=== PATIENT | female | born 1990 ===

== ENCOUNTER 2022-08-30 16:43 | Inpatient (IN) | payer OTHER, SELFPAY ==
[2022-08-30 16:50] VITALS: BP 100/43; BP 132/78; PULSE 109; PULSE 92; RESP 24; TEMP 36.1; O2SAT 98; O2SAT 99; BMI 30.9
[2022-08-30 17:14] VITALS: BP 115/70
[2022-08-30] MEDS: LORazepam 2 MG/ML VIAL IM (17:15)
[2022-08-30] MEDS: diphenhydrAMINE HCL 50 MG/ML VIAL IM (17:15)
--- NOTE | 2022-08-30 17:22 | PC.NURSE ---
Upon arrival to ED pt hyperventilating and severely emotionally dysregulated. Pt visibly experiencing carpal-pedal spasms, and endorsing feelings of lightheadedness. Pt coached by this RN to breathe into a bag, Dr. Tomlinson over to eval patient, ativan offered by . Pt unsure if she is able to tolerate PO meds at this time due to feeling nauseated and advocating for IM injection. Pt in behavioral control, extremely anxious. Eventually able to private branch exchange operator with t/w into hospital attire. Belongings locked in locker, pt received meds per SEP and currently resting in bed. Pt reported while changing over that she has had very poor sleep for the past week, has not been eating very much either, states she has been having suicidal thoughts for some time now and reports these thoughts as intrusive . Pt states she made a SI attempt when she was 15 years old by swallowing a bottle of pills .
--- NOTE | 2022-08-30 17:27 | ED_ITS ---
HPI - Psych General Chief Complaint: Psychiatric Symptoms Stated Complaint: sec 12 by shanae chen w/plan per ems Time Seen by Provider: 08/30/22 16:50 Source: patient and EMS Mode of arrival: EMS History of Present Illness HPI Narrative: This is a 32-year-old female history of suicidal ideation, depression anxiety presenting to the emergency department via EMS on a Section 12 for suicidal ideation with plan to overdose on her home medications. According to patient she has been feeling suicidal and anxious as well as depressed over the past few days worsening, reports increasing life stressors. Tells me she has had a suicide attempt in the past. Denies visual, auditory and tactile hallucinations. Denies drugs, alcohol and tobacco. No medical complaints at this time. Related Data Home Medications Medication Instructions Recorded Confirmed No Known Home Meds 08/30/22 08/30/22 Allergies Allergy/AdvReac Type Severity Reaction Status Date / Time No Known Allergies Allergy Verified 08/30/22 20:09 Review of Systems Review of Systems: Constitutional : No Weight loss, No Fever, No Chills, No Fatigue, No Malaise ENT/Mouth : No sore throat, No Rhinorrhea Eyes: No Eye Pain, No Swelling, No Redness Cardiovascular : No Chest Pain, No SOB, No Dyspnea on Exertion, No Orthopnea, No Edema, No Palpitations Respiratory : No Cough, No Sputum, No Wheezing Gastrointestinal : No Nausea, No Vomiting, No Diarrhea, No Constipation, No abdominal Pain, No Hematochezia, No Melena Genitourinary : No Dysuria, No Urinary Frequency, No Hematuria, Musculoskeletal : No joint pain, No Myalgias, No Joint Swelling Skin : No Skin Lesions, No rash Neuro : No Weakness, No Numbness, No Dizziness, No Headache Psych : + Anxiety/Panic, + Depression, + SI , No HI All other systems reviewed and are negative Yes all other systems are reviewed and are negative [facility] Past Medical History Attestation statement: The following information was validated with the patient. Source: old records reviewed and nursing notes reviewed Social History Social History Advance Directives: No Advance Directives Information Provided: No Physical Exam Vital Signs: Vital Signs: Last Vital Signs Temp 97.0 F 08/30/22 16:50 Pulse 92 08/30/22 16:50 Resp 24 H 08/30/22 16:50 BP 115/70 08/30/22 17:14 Pulse Ox 99 08/30/22 16:50 O2 Del Method 08/30/22 16:50 BMI result Body Mass Index 30.9 vss Appearance: Alert.? Oriented X3.? No acute distress.? Head: Normocephalic, atraumatic, no step-offs or deformities Eyes: Pupils equal, round and reactive to light.? ENT: Pharynx normal.? Neck: Normal inspection.? Neck supple.? CVS: Normal heart rate and rhythm.? Pulses normal.? Respiratory: No respiratory distress.? Breath sounds normal.? Abdomen: Soft and nontender.? Skin: Skin warm and dry.? Normal skin color.? Normal skin turgor.? Extremities: No lower extremity edema.? No calf ttp. 5/5 strength to bilateral upper and lower extremities Neuro: Oriented X 3.? No motor deficit.? No sensory deficit. CN 2-12 intact Course Reevaluation(s) Reevaluation #1: Patient evaluated in the community by Stefani is an inpatient bedsearch. Time: 17:33 Reevaluation #2: CBC with slight normocytic anemia. Chemistry with no acute electrolyte abnormalities requiring intervention. Salicylates, acetaminophen and ethanol negative. Patient's COVID is negative. At this time patient on a Section 12 and is in inpatient bed search. Will be placed into observation to allow more time to be placed into a psychiatric facility. At time observation was started patient common cooperative no acute distress will continue to monitor discharge Time: 00:51 Medications Administered Discontinued Medications Generic Name Dose Route Start Last Admin Trade Name Mei PRN Reason Stop Dose Admin Acetaminophen 975 mg 08/31/22 00:02 08/31/22 00:06 Acetaminophen 325 Mg Tablet PO 08/31/22 00:03 975 mg ONCE ONE Administration Diphenhydramine HCl 50 mg 08/30/22 16:57 08/30/22 17:15 Diphenhydramine Hcl 50 Mg/Ml Vial IM 08/30/22 16:58 50 mg ONCE ONE Administration Lorazepam 2 mg 08/30/22 16:57 08/30/22 17:15 Lorazepam 2 Mg/Ml Vial IM 08/30/22 16:58 2 mg STAT STA Administration Olanzapine 5 mg 08/31/22 00:18 08/31/22 00:20 Olanzapine 5 Mg Tablet PO 08/31/22 00:19 5 mg ONCE ONE Administration Medical Decision Making Medical Decision Making [facility] Narrative: [id number] To know when patient came in she had an anxiety attack, was refusing p.o. medications and requested IM lorazepam, Benadryl ordered and seem to help. I did not put in an order for behavioral restraint as this was voluntary. [id number] 32-year-old female presents with anxiety, depression and suicidal ideation with plan to overdose times a few days worsening. Physical examination benign. Likely depressive episode with suicidal ideation. I do not suspect metabolic derangements. Plan at this time medical clearance evaluation back. Safety plan in place. Differential Diagnosis Differential Diagnoses: The differential diagnosis associated with the presentation includes Likely depressive episode with suicidal ideation. I do not suspect metabolic derangements. Admission/Observation Consideration of admission/observation: Escalation of care including admission/ observation considered Lab Data [facility] Lab Attestation statement: I reviewed the patient's lab results. 08/30/22 23:57 08/30/22 23:57 Labs: Lab Results 08/30/22 08/30/22 08/30/22 Range/Units 19:26 23:57 23:57 WBC 5.6 (4.8-10.8) X10*3/uL RBC 4.16 L (4.20-5.50) X10*6/uL Hgb 11.9 L (12.0-16.0) g/dl Hct 34.3 L (37.0-47.0) % MCV 82.5 (80.0-98.0) fL MCH 28.6 (27.0-33.0) pg MCHC 34.7 (31.0-35.0) g/dl RDW 12.9 (11.0-16.0) % Plt Count 285 (160-400) X10*3/uL MPV 9.9 (9.4-12.3) fL Immature Gran % (Auto) 0.2 (0.0-0.4) % Neut % (Auto) 60.7 (45-73) % Lymph % (Auto) 31.6 (20-40) % [place] % (Auto) 6.9 (2-11) % Eos % (Auto) 0.2 (0-4) % Baso % (Auto) 0.4 (0-2) % Lymph # (Auto) 1.8 (1.2-4.9) X10*3/uL [place] # (Auto) 0.4 (0.1-1.2) X10*3/uL Eos # (Auto) 0.0 (0.0-0.4) X10*3/uL Baso # (Auto) 0.0 (0.0-0.2) X10*3/uL Abs Immat Gran (auto) 0.01 (0.00-0.03) X10*3/uL Absolute Neuts (auto) 3.4 (2.0-8.3) x10*3/uL Absolute Nucleated RBC 0.000 (0.0-0.012) X10*3/uL Nucleated RBC % (auto) 0.0 (0.0-0.2) /100WBC Sodium 139 (135-145) mmol/L Potassium 3.4 (3.3-5.1) mmol/L Chloride 108 (96-108) mmol/L Carbon Dioxide 20 L (22-29) mmol/L Anion Gap 14 (12-20) BUN 5 L (9-16) mg/dL Creatinine 0.56 (0.5-1.4) mg/dL Estim Creat Clear Calc 142.5 Estimated GFR > 60 Random Glucose 80 (60-115) mg/dL Calcium 8.8 (8.4-10.2) mg/dL Magnesium 1.9 (1.6-2.6) mg/dL Total Bilirubin 0.8 (0.0-1.0) mg/dL AST 15 (5-31) U/L ALT 13 (0-31) U/L Alkaline Phosphatase 61 (39-117) U/L Total Protein 6.9 (6.5-8.0) g/dL Albumin 3.9 (3.5-5.0) g/dL Salicylates < 5.0 L (15-30) mg/dL Acetaminophen < 17 (<30) mcg/mL Ethyl Alcohol < 10 mg/dL COVID-19 (BRIAN) Negative (Negative) COVID-19 Clin Com See Note Core Measures AMI core measures followed: Yes Measure exclusions: not indicated Critical Care Time Critical Care Time Critical Care Time: No Discharge Plan Discharge Clinical Impression: Suicidal ideation, Depression Patient Disposition: Still a Patient Prescriptions: No Action No Known Home Meds Interventions: [place]-Suicide Risk Severity Scale Last Done: 08/31/22 00:25
--- NOTE | 2022-08-30 18:23 | MHC.EDTECH ---
pt medicated with IM ativan and benadryl at 1715 d/t panic attack. pt is sleeping. momo fuentes advised not to do labs until pt wakes up.
--- NOTE | 2022-08-30 19:07 | MHC.CARE ---
CARE team reaches out to [facility] Crisis and speaks to airplane pilot supervisor Cori who confirms that disposition is for IP bed search. [facility] agrees to forward assessment to CARE Team once completed.
[2022-08-30 19:57] LABS: COVID-19 Test Negative (Negative); IDNOW Serial# 16C4AD1C
[2022-08-31 00:02] LABS: MANUAL DIFF FLAG NO
[2022-08-31] MEDS: Acetaminophen 325 MG TABLET 975 MG PO (00:06)
[2022-08-31 00:07] LABS: Basophils Percent Auto 0.4 % (0-2); Eosinophils Percent Auto 0.2 % (0-4); Hematocrit 34.3 % (37.0-47.0); Hemoglobin 11.9 g/dl (12.0-16.0); Imm Gran Abs Auto 0.01 X10*3/uL (0.00-0.03); Imm Gran Pct Auto 0.2 % (0.0-0.4); Lymphocytes Absolute Auto 1.8 X10*3/uL (1.2-4.9); Lymphocytes Percent Auto 31.6 % (20-40); Mean Corpuscular HGB Conc 34.7 g/dl (31.0-35.0); Mean Corpuscular Hemoglobin 28.6 pg (27.0-33.0); Mean Corpuscular Volume 82.5 fL (80.0-98.0); Mean Platelet Volume 9.9 fL (9.4-12.3); Monocytes Absolute Auto 0.4 X10*3/uL (0.1-1.2); Monocytes Percent Auto 6.9 % (2-11); Neutrophils Absolute Auto 3.4 x10*3/uL (2.0-8.3); Neutrophils Percent Auto 60.7 % (45-73); Platelet Count 285 X10*3/uL (160-400); Red Blood Count 4.16 X10*6/uL (4.20-5.50); Red Cell Distribution Width 12.9 % (11.0-16.0); White Blood Count 5.6 X10*3/uL (4.8-10.8)
[2022-08-31] MEDS: OLANZapine 5 MG TABLET PO (00:20)
[2022-08-31 00:23] LABS: Acetaminophen LAB < 17 mcg/mL (<30); Alanine Aminotransferase 13 U/L (0-31); Albumin Level 3.9 g/dL (3.5-5.0); Alkaline Phosphatase 61 U/L (39-117); Anion Gap 14 (12-20); Aspartate Amino Transferase 15 U/L (5-31); Bilirubin Total 0.8 mg/dL (0.0-1.0); Blood Urea Nitrogen 5 mg/dL (9-16); Calcium 8.8 mg/dL (8.4-10.2); Carbon Dioxide 20 mmol/L (22-29); Chloride 108 mmol/L (96-108); Creatinine Clr Calc Pharmacy 142.5; Estimated Glomerular Filt Rate > 60; Ethanol < 10 mg/dL; Glucose Random 80 mg/dL (60-115); Magnesium 1.9 mg/dL (1.6-2.6); Potassium 3.4 mmol/L (3.3-5.1); Salicylate < 5.0 mg/dL (15-30); Sodium 139 mmol/L (135-145); Total Protein 6.9 g/dL (6.5-8.0)
--- NOTE | 2022-08-31 00:26 | PC.NURSE ---
Patient reported KEY 7/10 and racing thought, Tylenol 975 mg and Olanzapine 5 mg PO administered as ordered/pending effect, VSS, disposition per N from the community is Section 12 inpatient Bed Search, behavior non concerning, will continue to monitor.
[2022-08-31 05:52] VITALS: BP 104/55; PULSE 98; RESP 15; TEMP 37.2; O2SAT 97
[2022-08-31 06:03] LABS: Appearance Urine Clear; Color Urine DK YELLOW; Glucose Urine UA Negative (Negative); Leukocyte Esterase Urine Negative (Negative); Nitrite Urine Negative (Negative); Specific Gravity - Urine >= 1.030 (1.005-1.025); UMIC TRIGGER UACC YES; Urine Blood Trace (Negative); Urine Ketones >=80 mg/dL (Negative); Urine Protein Negative (Neg-Trace)
[2022-08-31 06:10] LABS: Bacteria Urine None Seen (None Seen); Hyaline Casts Urine 0-2 /LPF (0-2); RBC Urine 0-2 /HPF (0-2); UACC Culture Trigger YES
--- NOTE | 2022-08-31 06:10 | PC.NURSE ---
Patient slept through the night, no distress observed/reported, behavior non concerning, disposition per [facility] from community is section 12 inpatient bed search, patient is currently not on any home medication, VSS, will continue to monitor.
[2022-08-31 06:17] LABS: Amphetamine Screen Urine Not Detected (Not Detect); Barbiturates, Urine Not Detected (Not Detect); Benzodiazepines Screen Urine Not Detected (Not Detect); Cannabinoid Screen Urine POSITIVE (Not Detect); Cocaine Screen Urine Not Detected (Not Detect); Fentanyl, urine Not Detected (Not Detect); Opiate Screen Urine Not Detected (Not Detect); Phencyclidine Screen Urine Not Detected (Not Detect)
[2022-08-31 07:30] VITALS: RESP 18
[2022-08-31 14:00] VITALS: RESP 16
--- NOTE | 2022-08-31 17:48 | PC.NURSE ---
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
[2022-08-31 18:00] VITALS: BP 120/71; PULSE 101; RESP 16; TEMP 36.7; O2SAT 98
--- NOTE | 2022-08-31 19:19 | PC.NURSE ---
Patient has been admitted to on a CV for Increased SI. Patient did not make an attempt, but had crisis called by her due to increased SI statements and mood liability. She has a limited psychiatric history. Does have one prior SI attempt 19 years prior to admission (per crisis eval). She does not have any psychiatric treatment outside of hospital at this time. On 15 min checks. Alert and oriented x4. During admission process patient appeared sad but pleasant. Organized, linear thinking. Recently started to have panic attacks, with the most recent being the the [facility] ED 1 day prior to arrival on the inpatient floor. History of lower back pain from disc degeneration.
[2022-08-31 21:12] VITALS: BP 107/64; PULSE 96; RESP 16; TEMP 36.6; O2SAT 99
[2022-08-31] MEDS: traZODone HCL 50 MG TABLET PO (21:43)
[2022-08-31] MEDS: hydrOXYzine HCL 25 MG TABLET PO (21:43)
[2022-09-01 07:00] VITALS: BMI 34.5
[2022-09-01 08:00] VITALS: BP 135/64; PULSE 92; RESP 16; TEMP 36.7; O2SAT 100
[2022-09-01 09:56] LABS: Alanine Aminotransferase 14 U/L (0-31); Alkaline Phosphatase 64 U/L (39-117); Aspartate Amino Transferase 16 U/L (5-31); Bilirubin Total 0.8 mg/dL (0.0-1.0); Blood Urea Nitrogen 7 mg/dL (9-16); Calcium 9.2 mg/dL (8.4-10.2); Cholesterol 132 mg/dL; Creatinine Clr Calc Pharmacy 126.7; Estimated Glomerular Filt Rate > 60; Glucose Fasting 83 mg/dL (60-99); HDL Cholesterol 36 mg/dL; LDL Cholesterol Calculated 86 mg/dl; Total Protein 7.3 g/dL (6.5-8.0); Triglycerides 54 mg/dL
[2022-09-01 10:00] LABS: Estimated Average Glucose 91 mg/dL; Hemoglobin A1c % 4.8 %
[2022-09-01 10:11] LABS: Anion Gap 16 (12-20); Carbon Dioxide 21 mmol/L (22-29); Chloride 107 mmol/L (96-108); Potassium 4.1 mmol/L (3.3-5.1); Sodium 140 mmol/L (135-145)
[2022-09-01 10:28] LABS: Folate 9.3 ng/mL (> or = 4.0); Vitamin B12 226 pg/mL (200-900)
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
[2022-09-01] MEDS: Sertraline HCL 25 MG TABLET PO (14:19)
[2022-09-01] MEDS: Cyanocobalamin (Vitamin B-12) 1,000 MCG/ML VIAL 1000 MCG IM (14:23)
[2022-09-01 14:33] LABS: Iron 43 mcg/dL (30-160); Percent Iron Saturation 14 % (15-50); Total Iron Binding Capacity 300 mcg/dL (228-428); Unsaturated Iron Binding 257 ug/dL
[2022-09-01] MEDS: traZODone HCL 50 MG TABLET PO (21:33)
[2022-09-01] MEDS: hydrOXYzine HCL 25 MG TABLET PO (21:33)
[2022-09-01] MEDS: Milk of Magnesia 30 ML ORAL.SUSP PO (21:35)
[2022-09-01 21:40] VITALS: BP 121/56; PULSE 94; RESP 18; TEMP 36.6; O2SAT 97
[2022-09-02 06:00] VITALS: BP 111/58; PULSE 86; RESP 16; TEMP 36.1; O2SAT 96
[2022-09-02] MEDS: Sertraline HCL 25 MG TABLET PO (08:54)
--- NOTE | 2022-09-02 11:27 | P.PNPSI_ITS ---
Subjective Subjective Date of Service: 09/02/22 Reason For Visit: SI Subjective Notes: Conditional Voluntary Interim History: Pt reports feeling much better. She reports she thinks b12 shoot did give her more energy. Pt reports she slept through the night. No SI/HI. She has been visible on the unit. No behavioral concerns. tolerating so far sertraline. Dc tomorrow Medication Compliance: Yes Side effects from medications: No Attending Groups: Yes Review of Systems Review of Systems Constitutional : No Weight loss, No Fever, No Chills, No Fatigue, No Malaise ENT/Mouth : No sore throat, No Rhinorrhea Eyes: No Eye Pain, No Swelling, No Redness Cardiovascular : No Chest Pain, No SOB, No Dyspnea on Exertion, No Orthopnea, No Edema, No Palpitations Respiratory : No Cough, No Sputum, No Wheezing Gastrointestinal : No Nausea, No Vomiting, No Diarrhea, No Constipation, No abdominal Pain, No Hematochezia, No Melena Genitourinary : No Dysuria, No Urinary Frequency, No Hematuria, Musculoskeletal : No joint pain, No Myalgias, No Joint Swelling Skin : No Skin Lesions, No rash Neuro : No Weakness, No Numbness, No Dizziness, No Headache Psych : + Anxiety/Panic, + Depression, + SI , No HI All other systems reviewed and are negative Yes all other systems are reviewed and are negative Mental Status Exam Mental Status Exam Narrative: Appearance: casually groomed, good hygiene, in NAD Behavior: cooperative, friendly Speech: clear, normal rate/rhythm/volume, spontaneous TP: linear TC: no signs of psychosis, future oriented, looking for additional supports Mood: better Affect: congruent, brightens at times SI: denies HI: denies VH/AH: none Delusions: none Insight/judgment: fair x 2. Memory/cog: alert, oriented x 3. grossly intact to conversational testing. Diagnostics Vital Signs (24Hr): Vital Signs - 24 hr 09/01/22 21:40 09/02/22 06:00 Temperature 97.8 F 97.0 F Pulse Rate 94 86 Respiratory Rate 18 16 Blood Pressure 121/56 L 111/58 L Pulse Oximetry 97 96 Oxygen Delivery Method Room Air Room Air BMI result Body Mass Index 34.5 Labs 08/30/22 23:57 09/01/22 08:59 Labs: Laboratory Results - last 48 hr 0209/01/22 09/01/22 08:59 08:59 14:07 Sodium 140 Potassium 4.1 D Chloride 107 Carbon Dioxide 21 L Anion Gap 16 BUN 7 L Creatinine 0.63 Estim Creat Clear Calc 126.7 Estimated GFR > 60 Fasting Glucose 83 Estimat Average Glucose 91 Hemoglobin A1c % 4.8 Calcium 9.2 Iron 43 TIBC 300 % Saturation 14 L Unsat Iron Binding 257 Total Bilirubin 0.8 AST 16 ALT 14 Alkaline Phosphatase 64 Total Protein 7.3 Albumin 4.0 Triglycerides 54 Cholesterol 132 LDL Cholesterol, Calc 86 HDL Cholesterol 36 Vitamin B12 226 Folate 9.3 Medications Medications Current Medications Acetaminophen (Acetaminophen 325 Mg Tablet) 650 mg PO Q6H PRN PRN Reason: Headache/Pain Mild Scale (1-3) Al Hydroxide/Mg Hydroxide (Magnesium Hydrox/Alum Hydrox 30 Ml Oral.Susp) 30 ml PO Q6H PRN PRN Reason: Heartburn/Nausea Cyanocobalamin (Cyanocobalamin (Vitamin B-12) 1,000 Mcg/Ml Vial) 1,000 mcg IM Q7D MERCEDES Stop: 09/22/22 14:01 Last Admin: 09/01/22 14:23 Dose: 1,000 mcg Hydroxyzine HCl (Hydroxyzine Hcl 25 Mg Tablet) 25 mg PO Q6H PRN PRN Reason: Anxiety Last Admin: 09/01/22 21:33 Dose: 25 mg Lorazepam (Lorazepam 1 Mg Tablet) 1 mg PO BID PRN PRN Reason: Anxiety Magnesium Hydroxide (Milk Of Magnesia 30 Ml Oral.Susp) 30 ml PO DAILY PRN PRN Reason: Constipation Last Admin: 09/01/22 21:35 Dose: 30 ml Pharmacy Consult (Consult Rx Perform Med Rec) 1 each MISCELLANE ONCE PRN PRN Reason: Consult order Sertraline HCl (Sertraline Hcl 50 Mg Tablet) 50 mg PO DAILY [facility] Trazodone HCl (Trazodone Hcl 50 Mg Tablet) 50 mg PO BEDTIME PRN PRN Reason: Insomnia Last Admin: 09/01/22 21:33 Dose: 50 mg Allergies Allergies Allergy/AdvReac Type Severity Reaction Status Date / Time No Known Allergies Allergy Verified 08/30/22 20:09 Assessment & Plan Assessment & Plan (1) MDD (major depressive disorder), recurrent episode, moderate: Status: Acute Code(s): F33.1 - Major depressive disorder, recurrent, moderate (2) Panic attack: Status: Acute Code(s): F41.0 - Panic disorder [episodic paroxysmal anxiety] Plan Ms. Wu is a 32 year-old woman with hx of MDD, presented to [facility] with increased depression, suicidal ideation with plan to OD, new onset panic attack. In the ED, pt positive for cannabinoids. We discussed risks, benefits and alternative treatment options. Pt agrees to start sertraline, titrate appropriately as tolerated. PLAN 1. Admit to M3, CV, 3 day, 15 minutes checks for safety. 2. Start sertraline 25mg po daily x 2 days, then increase to 50mg po daily. 3. PRN ativan for anxiety 4. Obtain collateral information 5. Aftercare planning. 09/02 continue tx. increase sertraline to 50mg po daily tomorrow. dc tomorrow. Reason for contiued inpatient stay Substantial Risk for: stable for discharge Time Spent With Patient Time: Total time managing care of this patient today ____ minutes.
--- NOTE | 2022-09-02 15:03 | MHC.CLN ---
NUTRITION CONSULT FOR DECREASED APPETITE AND WEIGHT LOSS. REPORTS UBW ABOUT 220#. CURRENT MVHYZY=212#. REPORTS WEIGHT LOSS X 3 MONTHS. NOT EATING FAST FOOD AND DRINKING SUGAR SODA. EATING SMALLER PORTIONS. HAD BEEN FEELING NAUSEOUS PRIOR TO ADMISSION. NO CURRENT NAUSEA. DIET=REGULAR. NO ADDITIONAL NUTRITION INTERVENTIONS AT THIS TIME.
[2022-09-02 21:06] VITALS: BP 129/59; PULSE 93; RESP 18; TEMP 36.7; O2SAT 97
[2022-09-02] MEDS: hydrOXYzine HCL 25 MG TABLET PO (21:06)
[2022-09-02] MEDS: traZODone HCL 50 MG TABLET PO (21:06)
[2022-09-02] MEDS: LORazepam 1 MG TABLET PO (21:06)
[2022-09-03 06:00] VITALS: BP 102/56; PULSE 60; RESP 18; TEMP 36.9; O2SAT 98
[2022-09-03] MEDS: Sertraline HCL 50 MG TABLET PO (09:26)
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
--- NOTE | 2022-09-03 11:16 | PC.NURSE ---
Pt alert and oriented x 4. States ready to leave today and picking her up. denies anx/dep at this time. Is bright,cheerful and pleasant. VSS Med compliant and eating well. dc instruc given to pt and . verbal understanding
[2022-09-07 02:23] LABS: VITAMIN D (1,25 OH) D3 45 pg/mL; Vit D (1,25-Dihydroxy) Total 45 pg/mL (18-72); Vitamin D (1,25 OH) D2 <8 pg/mL
== END 2022-09-03 11:00 | disposition home or self-care (01) | DRG 751 ==
LOC: HO.ED 08-31 00:53 → HO.PADLT16 08-31 16:32
PROVIDERS: Physician Assistant; Social Worker; Admitting Provider Psychiatry & Neurology Psychiatry; Emergency Provider Internal Medicine; PCP Internal Medicine; Visit Provider Psychiatry & Neurology Psychiatry
DX: F33.1 Major depressive disorder, recurrent, moderate (principal); R45.851 Suicidal ideations; F41.0 Panic disorder [episodic paroxysmal anxiety]; Z20.822 Contact with and (suspected) exposure to COVID-19; Z79.899 Other long term (current) drug therapy
CPT/HCPCS: 36415; 80053; 80061; 80143; 80179; 80307; 81001; 82077; 82607; 82652; 82746; 83036; 83540; 83735; 85025; 87086; 87635; 99285; J1200; J2060

== ENCOUNTER 2024-07-03 14:09 | Outpatient (AMB) | payer OTHER, SELFPAY ==
--- NOTE | 2024-07-03 14:25 | A.SPINEOV_ITS ---
Vital Signs 07/03/24 15:02 Height 5 ft 4 in Weight 220 lb BMI 37.8 Intake Visit Reasons: back pain 2 back surgeries Intake Note: Ms. Wu is here c/o back pain. Mail Officer Required: No Allergies No Known Allergies Allergy (Verified 07/03/24 15:01) Physical Exam Vital Signs: BMI result Body Mass Index 37.8 Assessment & Plan Assessment & Plan (1) Recurrent herniation of lumbar disc: Code(s): M51.26 - Other intervertebral disc displacement, lumbar region Category: Medical Plan Dear colleague Thank you for referring Mahesh Wu to the office today with a chief complaint of right-sided back pain. HPI: This 33-year-old female presents with an acute right-sided back pain that started approximately 4 weeks ago. She woke up 1 morning and noticed the pain. Today's before she was involved in high intensity training program at the gym. Her history is positive for 2 lumbar microdiskectomies L5-S1 in August 2018 and November 2019. Her last MRI was done at 07:28 2021 at [facility] that showed no recurrent disc herniation. She denies the previous radiation down her leg. However, coughing and sneezing increases the pain. Sitting is also painful. She can not lay on her back. She is using [id number] medications in attempt to alleviate the symptom. Physical Exam: Pleasant female. She is sitting deviated towards the left side. Straight leg raise produces the pain on the right side of her back. No motor or sensory deficits Impression/Plan: This patient is suffering from acute right-sided back pain without radiculopathy. Differential diagnosis is recurrent disc herniation or SI joint pathology. The acuteness of the story and her medical history favors a recurrent disc herniation. I would like to order an MRI of the lumbar spine with contrast at [facility]. The patient will call for a follow-up appointment after the MRI is done. Thank you for allowing me to participate in your patients care. total time spent was 30 minutes in counseling ,coordination of plan, personal review of imaging, surgical decision making and subsequent plan Liu Schuster MD, PhD Spine Fellowship Trained Neurosurgeon Director, [facility] Orders: Orders MR lumbar spine wo/w con Today M51.26 - Other intervertebral disc displacement, lumbar region Coding Level of Care Code New Pt Level 3 (05696) Diagnoses Recurrent herniation of lumbar disc M51.26
[2024-07-03 15:02] VITALS: BMI 37.8
== END 2024-07-03 15:56 | disposition home or self-care (01) ==
PROVIDERS: PCP Internal Medicine; Visit Provider Neurological Surgery
DX: M51.26 Other intervertebral disc displacement, lumbar region (principal)
CPT/HCPCS: 99203

== ENCOUNTER → 2024-07-03 14:09 | Outpatient (BNVA) | payer OTHER, SELFPAY | PROVIDERS: PCP Internal Medicine; Visit Provider Neurological Surgery | DX: M51.26 Other intervertebral disc displacement, lumbar region (principal) | CPT/HCPCS: 99202 ==

== ENCOUNTER 2024-08-02 11:49 | Outpatient (AMB) | payer OTHER, SELFPAY ==
--- NOTE | 2024-08-02 12:04 | A.SPINEOV_ITS ---
Intake Visit Reasons: MRI f/u Intake Note: Ms. Wu is here today to F/u on the results of her MRI. Traffic Lieutenant Required: No Allergies No Known Allergies Allergy (Verified 08/02/24 12:06) Assessment & Plan Assessment & Plan (1) Back pain due to injury: Code(s): M54.9 - Dorsalgia, unspecified Category: Medical Plan Dear colleague, On 08/02/2024 I saw for follow-up Brittani of the last guess. She presented with an acute onset of right-sided back pain a few weeks ago after doing aHITT program in the gym. We ordered a new MRI of the lumbar spine which fortunately shows no recurrent pathology. In the meantime, her symptoms have spontaneously resolved as expected. I discharged her from further follow-up. Liu Schuster MD, PhD Spine Fellowship Trained Neurosurgeon Director, [facility] [place] [facility] Coding Level of Care Code Est Pt Level 3 (34524) Diagnoses Back pain due to injury M54.9
== END 2024-08-02 12:20 | disposition home or self-care (01) ==
PROVIDERS: PCP Internal Medicine; Visit Provider Neurological Surgery
DX: M54.9 Dorsalgia, unspecified (principal)
CPT/HCPCS: 99213

== ENCOUNTER → 2024-08-02 11:49 | Outpatient (BNVA) | payer OTHER, SELFPAY | PROVIDERS: PCP Internal Medicine; Visit Provider Neurological Surgery | DX: M54.9 Dorsalgia, unspecified (principal) | CPT/HCPCS: 99212 ==